=== PATIENT | male | born 1985 | race Caucasian/White ===

== ENCOUNTER 2021-06-09 06:32 | Day surgery (SDC) | payer OTHER ==
[2021-06-09] MEDS ORDERED: Ringers Lactate 1,000 ML IV ONE (07:07)
[2021-06-09] MEDS ORDERED: LIDOCAINE 1% MPF 5 ML VIAL ONE (08:14)
[2021-06-09] MEDS ORDERED: MIDAZOLAM HCL 2 MG/2 ML INJ ONE (08:14)
[2021-06-09] MEDS ORDERED: propofoL 200 MG/20 ML VIAL IV ONE (08:14)
--- NOTE | 2021-06-09 08:30 | ENDO RPT ---
[address], [address] COLONOSCOPY PROCEDURE REPORT EXAM DATE: 06/09/2021 PATIENT NAME: Jr Booker MR #: [id number] BIRTHDATE: 1985 ATTENDING: Matti Garcia DR STATUS: outpatient WELFARE ELIGIBILITY WORKER: Abbie Quintero RN and Jennifer Jones INDICATIONS: The patient is a 35 yr old Male here for a colonoscopy due to Abnormal Imaging on LEFT Nephrectomy site with possible colon involvement PROCEDURE PERFORMED: Colonoscopy with biopsy MEDICATIONS: Per Anesthesia. ESTIMATED BLOOD LOSS: None CONSENT: The patient understands the risks and benefits of the procedure and understands that these risks include, but are not limited to: sedation, allergic reaction, infection, perforation and/or bleeding. Alternative means of evaluation and treatment include, among others: physical exam, x-rays, and/or surgical intervention. The patient elects to proceed with this endoscopic procedure. DESCRIPTION OF PROCEDURE: During intra-op preparation period all mechanical medical equipment was checked for proper function. Hand hygiene and appropriate measures for infection prevention was taken. Procedure, possible complications, alternatives including, but not limited to possibility of bleeding, perforation, tear, infection, sepsis, need for surgery, need for blood transfusion, were explained to the patient. After the risks, benefits and alternatives of the procedure were thoroughly explained, Informed consent was verified, confirmed and timeout was successfully executed by the treatment team. The patient was placed in the left lateral position. A digital rectal exam was performed and revealed internal hemorrhoids. After appropriate level of anesthesia, the scope was passed. The EC-[id number] ([id number] endoscope was introduced through the anus and advanced to the cecum, which was identified by both the appendix and ileocecal valve. The quality of the prep was fair. The instrument was then slowly withdrawn as the colon was fully examined. Scope withdrawal time was 10 minutes. COLON FINDINGS: Mild diverticulosis was noted throughout the entire examined colon. No bleeding was noted from the diverticulosis. The colon mucosa was otherwise normal. A biopsy of the area was performed. Retroflexed views revealed no abnormalities. The scope was then completely withdrawn from the patient and the procedure terminated. ADVERSE EVENTS: There were no complications. IMPRESSIONS: 1. Mild diverticulosis was noted throughout the entire examined colon 2. The colon mucosa was otherwise normal; biopsy of the area was performed 3. Internal hemorrhoids RECOMMENDATIONS: 1. avoid NSAIDS 2. await biopsy results 3. avoid NSAIDS for 2 weeks 4. follow-up: office 2 week(s) 5. hemorrhoidal hygiene 6. yearly hemoquant RECALL: for Colonoscopy, pending biopsy results. Matti Garcia DR eSigned: Matti Garcia DR 06/09/2021 8:29 AM cc: CPT CODES: ICD9 CODES: PATIENT NAME: Jr Booker MR#: [id number]
[2021-06-09 09:16] VITALS: O2SAT 100
[2021-06-09 09:17] VITALS: BP 108/61; TEMP 97.6
== END 2021-06-09 08:57 | disposition home or self-care (01) ==
LOC: OR 06:32
PROVIDERS: ATTEND Surgery
PROC: 0DBE8ZX Excision of Large Intestine, Via Natural or Artificial Opening Endoscopic, Diagnostic (ICD-10-PCS; principal; 2021-06-09 07:30)
DX: Z85.528 Personal history of other malignant neoplasm of kidney (principal); K64.8 Other hemorrhoids; K57.30 Diverticulosis of large intestine without perforation or abscess without bleeding; Z20.822 Contact with and (suspected) exposure to COVID-19
CPT/HCPCS: 45380; 88305; U0003; J2704; J2250; J7120